=== PATIENT | female | born 1980 | race Two or more races ===

== ENCOUNTER → 2024-12-21 | Emergency (ER) | payer OTHER ==
[~2024-12-21] VITALS: Ht 162.6 cm; Wt 53.5 kg
[~2024-12-21] MED LIST: CELEBREX50 MG PO; HORIZANT600 MG; KETOROLAC TROMETHAMINE 60 MG VIAL IM ONE; ORPHENADRINE CITRATE 30 MG/ML AMPUL IM ONE; PROPRANOLOL HCL60 MG
== END | disposition home or self-care (01) ==
LOC: ER 07:52
DX: M62.830 Muscle spasm of back (principal); R10.9 Unspecified abdominal pain